=== PATIENT | female | born 1990 | race Caucasian/White ===

== ENCOUNTER 2016-05-14 17:19 | Emergency (ER) | payer OTHER ==
[2016-05-14 18:01] LABS: CLARITY CLEAR (CLEAR); COLOR ORANGE (YELLOW)
[2016-05-14 18:10] LABS: BACTERIA 2+
== END 2016-05-14 19:28 | disposition home or self-care (01) ==
LOC: FER 17:19
PROVIDERS: Nurse Practitioner
DX: N30.01 Acute cystitis with hematuria (principal); Z87.440 Personal history of urinary (tract) infections
CPT/HCPCS: 81001; 87076; 87088; 87186

== ENCOUNTER 2021-08-15 05:24 | Inpatient (IN) | payer OTHER ==
[~2021-08-15] VITALS: Ht 157.5 cm; Wt 94.8 kg
[2021-08-15 06:40] LABS: HCT 30.9 % (37.0-47.0); HGB 10.7 g/dl (12.5-16.0); MCH 29.2 pg (25.0-31.0); MCHC 34.6 g/dL (32.0-36.0); MCV 84.4 fL (78.0-100.0); MPV 10.5 fL (6.0-9.5); RBC 3.66 M/uL (4.20-5.40); RDW 12.8 % (11.5-14.0); WBC 7.8 K/uL (4.0-10.5)
[2021-08-15 07:00] LABS: BILIRUBIN NEGATIVE (NEGATIVE); BLOOD TRACE-INTACT Ery/uL (NEGATIVE); CLARITY HAZY (CLEAR); COLOR YELLOW (YELLOW); GLUCOSE (U) NORMAL (NORMAL); LEUKOCYTES 2+ Leu/uL (NEGATIVE); NITRITE NEGATIVE (NEGATIVE); PROTEIN TRACE (LOW) mg/dL (NEGATIVE); SPECIFIC GRAVITY 1.025 (1.001-1.030); pH 6.5 (5.0-9.0)
[2021-08-15 07:18] LABS: BACTERIA 2+
[2021-08-16 08:14] LABS: HCT 30.6 % (37.0-47.0); HGB 10.4 g/dL (12.5-16.0)
== END 2021-08-17 10:14 | disposition home or self-care (01) | DRG 806 ==
LOC: FOB 05:24 → FOD 05:24 → FOB 06:26 → FOD 06:26 → FOB 08-17 10:14
PROVIDERS: ADMIT Obstetrics & Gynecology
PROC: 10E0XZZ Delivery of Products of Conception, External Approach (ICD-10-PCS; principal; 2021-08-15)
DX: O99.214 Obesity complicating childbirth (principal); D62 Acute posthemorrhagic anemia; Z37.0 Single live birth; Z3A.39 39 weeks gestation of pregnancy; Z20.822 Contact with and (suspected) exposure to COVID-19; O99.344 Other mental disorders complicating childbirth; F41.9 Anxiety disorder, unspecified; O36.8130 Decreased fetal movements, third trimester, not applicable or unspecified; O36.60X0 Maternal care for excessive fetal growth, unspecified trimester, not applicable or unspecified; O99.02 Anemia complicating childbirth; D50.9 Iron deficiency anemia, unspecified; O70.1 Second degree perineal laceration during delivery; Z79.899 Other long term (current) drug therapy
CPT/HCPCS: 36415; 81001; 85014; 85018; 86850; 86900; 86901; J2405; J2795; J3010; J7120; U0002